=== PATIENT | male | born 1955 | race Caucasian/White ===

== ENCOUNTER → 2018-06-25 | Outpatient (CLI) | payer BC, OTHER ==
[~2018-06-25] MED LIST: DITROPAN XL10 MG PO; FLECAINIDE ACET50 M1 PO; GLYXAMBI 10 MG1 EACH; KLOR-CON 1010 MEQ PO; LASIX 20 MG TAB20 MG; LASIX 20 MG TAB20 MG PO; LIPITOR10 MG PO; LISINOPRIL5 MG PO; LOPRESSOR50 PO; VITAMIN D1000 UNI1 PO; XARELTO20 MG PO
[2018-06-25 08:42] LABS: HEMATOCRIT 46.3 % (42.0-52.0); HEMOGLOBIN 15.9 gm/dL (14.0-18.0); MCH 31.3 pg (26.0-34.0); MCHC 34.3 g/dL (28.0-37.0); MCV 91.1 fL (80.0-100.0); RBC 5.08 mil/uL (4.50-6.00); RDW 13.2 % (10.5-14.5); WBC 7.1 thou/uL (4.0-11.0)
[2018-06-25 08:56] LABS: POTASSIUM 4.5 mmol/L (3.5-5.1); TOTAL BILIRUBIN 0.5 mg/dL (<0.1-1.0); TOTAL PROTEIN 7.4 g/dL (6.4-8.2)
== END ==
LOC: CAT 08:24
PROVIDERS: Internal Medicine Cardiovascular Disease
DX: I48.91 Unspecified atrial fibrillation (principal); I25.10 Atherosclerotic heart disease of native coronary artery without angina pectoris; K80.20 Calculus of gallbladder without cholecystitis without obstruction; M47.814 Spondylosis without myelopathy or radiculopathy, thoracic region

== ENCOUNTER 2018-06-30 06:46 | Observation (INO) | payer BC, OTHER ==
[~2018-06-30] VITALS: Ht 177.8 cm; Wt 88.0 kg
--- NOTE | ~2018-06-30 | P ---
[facility] [place] [address] PROCEDURE REPORT Name: ALEC COOK Room #: 202-P [facility] M.RPetrona#: [id number] Admission: 06/30/18 Attend Phys: Thierno Ha MD Discharge: Date of : 51 Report #: [id number] THIS REPORT FOR: //name// CC: Luis Peterson PREOPERATIVE DIAGNOSIS: Atrial fibrillation. POSTOPERATIVE DIAGNOSIS: Atrial fibrillation. INDICATIONS: The patient is a 62-year-old with history of atrial fibrillation, here for an ablation. PROCEDURES PERFORMED: 1. AFib ablation, CPT code 06731. 2. 3D mapping EP, CPT code 60189. 3. Intracardiac echo, CPT code 28357. 4. Focal ablation, CPT code 75355. ANESTHESIA: The patient underwent general anesthesia with no anesthesia related complications. Of note, he did have somewhat low blood pressures and required some vasopressors to maintain his blood pressure. DESCRIPTION OF PROCEDURE: The patient underwent informed consent. We discussed the details of the procedure including the risks which include, but not limited to, bleeding, vascular damage, stroke, LA. He understood these risks and is willing to proceed. The patient was brought to EP laboratory in a fasting and sedated state, prepped and draped in sterile fashion. I then obtained access to the right femoral vein x 3, placing an 8-[place]ank[place], 9-[place]ankan and 7-[place]ankan short sheath using the modified Seldinger technique. Under fluoroscopy, I placed a decapolar catheter easily in the coronary sinus and ice catheter into the right atrium. At baseline, the patient was in AFib with a ventricular rate of 420 milliseconds, QRS duration 95 milliseconds, QT interval 330 milliseconds. Using intracardiac ultrasound, I created a detailed 3D geometry of the left atrium. I did have some difficulties visualizing the left atrial appendage in the left superior pulmonary vein throughout the case, but could visualize the left inferior and the right-sided veins. Next, the patient was systemically heparinized and a transseptal was performed along the mid anterior septum. His transseptal was straightforward and I advanced the SL1 sheath into the left atrium. I then placed a Lasso catheter and created a detailed 3D geometry of the left atrium as well as a voltage map, which showed activation of all 4 pulmonary veins. I then exchanged the SL1 sheath for the cryo sheath and placed the cryoablation balloon into the left atrium. I started by isolating the left superior pulmonary vein. The first freeze was of 180 seconds duration and I came off early due to low [address] [address] PROCEDURE REPORT Name: ALEC COOK Room #: 202-P [facility] M.R.#: [id number] Admission: 06/30/18 Attend Phys: Thierno Ha MD Discharge: Date of : 51 Report #: [id number] attempts at around -30 degrees. After the balloon deflated, the patient had a vagal response with systolic blood pressure dropping into the 60s. I then performed a second freeze in this vein, which was a 4 minutes' duration with isolation of the vein within 140 seconds. However, once the balloon came down, there was evidence of return of conduction in this vein and again he had another vagal response with a blood pressure down to the 60s. I performed a third freeze of a 4 minutes' duration where the vein again isolated after 190 seconds and again when the balloon came down, the blood pressure dropped to 60. A fourth freeze was completed of 4 minutes' duration and again the vein isolated at 150 seconds, but then reconnected and similar to previously, the blood pressure dropped again. I did verify that there was no pericardial effusion and this was clearly a vagal response. I therefore turned my attention to the left inferior pulmonary vein, hoping that maybe isolating this vein would help with the left superior pulmonary vein as well. I performed 3 freezes in this vein. The first freeze was of 4 minutes' duration. It did not result in isolation. The second freeze was of 4 minutes' duration and the vein isolated within 53 seconds. I performed an additional 4-minute freeze and placed the balloon at a more superior and coronal location to hopefully overlap with the left superior pulmonary vein. The left inferior pulmonary vein was now clearly isolated and when I placed my Achieve into the left superior pulmonary vein, this had also been isolated. I therefore turned my attention to the right-sided veins. I placed the decapolar catheter up into the SVC and used this for phrenic nerve pacing. The right superior pulmonary vein isolated after a single 4-minute freeze within 45 seconds. Therefore, I performed a single freeze in this vein. I then turned my attention to the right inferior pulmonary vein. I performed a 4-minute freeze and the vein was not isolated. I performed a second 4-minute freeze and the vein still was not isolated despite good attempts. I therefore repositioned my Achieve into a lower branch of the right inferior pulmonary vein. This allowed me to better obtain occlusion of the inferior aspect of this vessel. This resulted in isolation of the vein after a 4-minute freeze. I then performed ablation along the posterior roof aspect of the left atrium, performing 4 freezes along the posterior roof. Next, a detailed voltage map was created which showed wide circumferential ablation of the left and right-sided veins and incomplete isolation of the posterior roof region of the left atrium. At this point, a cardioversion was performed with adventist of sinus rhythm. A post-ablation EP study was performed and AV block was noted at 330 milliseconds, atrial ERP was noted 270 milliseconds at [address] cycle length. The patient remained in sinus rhythm with sinus cycle length of 1070 milliseconds, [place] interval 180 milliseconds, QRS duration 80 milliseconds, QT interval 430 milliseconds. As such, all catheters and sheaths were pulled, hemostasis was obtained and the patient awoke neurologically and hemodynamically intact. [facility] [address] [place] [address] PROCEDURE REPORT Name: ALEC COOK Room #: 202-P [facility] MePtronaRPetrona#: [id number] Admission: 06/30/18 Attend Phys: Thierno Ha MD Discharge: Date of : 51 Report #: [id number] CONCLUSIONS: Successful AFib ablation with isolation with wide circumferential ablation of the pulmonary veins. By: [id number] Thierno Ha MD /nt
[~2018-06-30 06:46] MED LIST changes: -LASIX 20 MG TAB20 MG PO
[2018-06-30 07:17] LABS: BASOPHILS 0.6 % (0.0-2.0); EOSINOPHILS 2.5 % (0.0-3.0); HEMATOCRIT 44.6 % (42.0-52.0); HEMOGLOBIN 15.5 gm/dL (14.0-18.0); LYMPHOCYTES 20.8 % (24.0-44.0); MCH 31.6 pg (26.0-34.0); MCHC 34.8 g/dL (28.0-37.0); MCV 90.6 fL (80.0-100.0); MONOCYTES 7.5 % (1.0-8.0); PLATELET COUNT 205 thou/uL (150-400); POLYS 68.6 % (36.0-66.0); RBC 4.92 mil/uL (4.50-6.00); RDW 12.9 % (10.5-14.5); WBC 7.3 thou/uL (4.0-11.0)
[2018-06-30 07:22] LABS: CALCIUM 9.2 mg/dL (8.5-10.1); CREATININE 0.9 mg/dL (0.7-1.3); POTASSIUM 4.2 mmol/L (3.5-5.1)
[2018-06-30 07:24] VITALS: BP 142/88
[2018-06-30 07:27] LABS: TOTAL BILIRUBIN 0.9 mg/dL (<0.1-1.0); TOTAL PROTEIN 7.6 g/dL (6.4-8.2)
[2018-06-30] MEDS ORDERED: LASIX 20 MG TAB20 MG PO (07:35)
[2018-06-30] MEDS ORDERED: KLOR-CON 1010 MEQ PO (07:35)
[2018-06-30 07:37] LABS: APTT 27.5 Seconds (24.5-32.8); PROTIME 10.9 Seconds (9.3-11.4)
[2018-06-30 13:40] VITALS: BP 114/73
[2018-06-30 17:55] VITALS: BP 94/44
[2018-06-30 19:18] VITALS: BP 101/68
--- NOTE | 2018-06-30 20:37 | NUR ---
ASSUMED CARE OF PT AT 1340. PT STILL SLEEPY FROM PROCEDURE. ANSWERS ORIENTATION QUESTIONS SLOWLY AND FOLLOWS COMMANDS. PT A&OX4 AND ALERT AT APPROX 1415. PT HAD NO BLEEDING OR HEMATOMA TO RIGHT GROIN, VENOUS ADRIAN CLOSURE. AND DAUGHTER AT THE BEDSIDE. PT ON BEDREST UNTIL 1810. CRANE TO BE REMOVED AFTER BEDREST.
[2018-07-01 00:05] VITALS: BP 92/67
[2018-07-01 04:02] VITALS: BP 110/74
[2018-07-01 07:10] VITALS: BP 107/74
--- NOTE | 2018-07-01 07:41 | NUR ---
pt up in room adlib thru the noc, tylenol given for c/o jurado, vss, ablations site cdi, report given to next shift to con't with ppoc.
--- NOTE | 2018-07-01 09:54 | NUR ---
ASSUMED PATIENT CARE THIS AM. PATIENT LYING IN BED, A&O. ROOM AIR. UP AD BHARGAVI. RIGHT GROIN SITE, D/I. RIGHT RADIAL SITE, C/D/I. NO COMPLAINTS OF PAIN/ N/T. AT BEDSIDE. TOLERATING DIET. AWAITING DOCTORS ORDERS. PLAN FOR POSSIBLE DISCHARGE HOME TODAY.
[2018-07-01] MEDS ORDERED: LOPRESSOR50 PO (10:28)
[2018-07-01 11:00] VITALS: BP 107/74
[2018-07-01 11:10] VITALS: BP 120/77
== END 2018-07-01 13:20 | disposition home or self-care (01) ==
LOC: CATH 06:46 → 2N 13:34 → ENTRNSPT 07-01 13:04 → EDTRNSPTSTS 07-01 13:07 → 2N 07-01 13:20
PROVIDERS: ADMIT Internal Medicine Cardiovascular Disease
DX: I48.0 Paroxysmal atrial fibrillation (principal); E11.9 Type 2 diabetes mellitus without complications; I10 Essential (primary) hypertension; I35.1 Nonrheumatic aortic (valve) insufficiency; Z79.899 Other long term (current) drug therapy
CPT/HCPCS: 62110; 62900; 65020; 65040; 70005

== ENCOUNTER → 2020-08-15 | Outpatient (CLI) | payer OTHER ==
[~2020-08-15] MED LIST changes: +LASIX 20 MG TAB20 MG PO; +METFORMIN HCL500 M3 PO
== END ==
LOC: SJCVC 15:34
PROVIDERS: ATTEND Internal Medicine Cardiovascular Disease
DX: R94.31 Abnormal electrocardiogram [ECG] [EKG] (principal); I48.0 Paroxysmal atrial fibrillation; E11.9 Type 2 diabetes mellitus without complications; R00.1 Bradycardia, unspecified; E78.5 Hyperlipidemia, unspecified; G47.33 Obstructive sleep apnea (adult) (pediatric); I50.30 Unspecified diastolic (congestive) heart failure; I11.0 Hypertensive heart disease with heart failure; Z79.899 Other long term (current) drug therapy; Z79.84 Long term (current) use of oral hypoglycemic drugs; Z72.89 Other problems related to lifestyle; Z88.0 Allergy status to penicillin

== ENCOUNTER → 2020-08-23 | Outpatient (CLI) | payer OTHER | LOC: LAB 07:40 | PROVIDERS: ATTEND Internal Medicine Cardiovascular Disease | DX: Z01.812 Encounter for preprocedural laboratory examination (principal); Z20.822 Contact with and (suspected) exposure to COVID-19 ==

== ENCOUNTER → 2020-08-24 | Outpatient (CLI) | payer OTHER ==
[~2020-08-24] VITALS: Ht 177.8 cm; Wt 80.7 kg
[2020-08-24 07:09] VITALS: BP 118/77
--- NOTE | 2020-08-24 09:14 | TEE ---
[facility] [place] [address] TRANSESOPHAGEAL ECHOCARDIOGRAM Name: JOEYALECBISHOP BERNABE Room #: REG WEI Del Cid.#: [id number] Admission: 08/24/20 Attend Phys: Samuel Velazquez MD, Discharge: Date of : 51 Report #: [id number] THIS REPORT FOR: cc: Luis Wang MD, Amir R. MD Lundgren, Craig H. MD [facility] ~ APPROVED REPORT Study performed: 08/24/2020 07:44:08 EXAM: Transesophageal Echocardiogram with Doppler and cardioversion Patient Location: Out-Patient Room #: 9 Status: routine BSA: 1.99 HR: 126 bpm BP: 105/74 mmHg Rhythm: Atrial Fibrillation Other Information Study Quality: Good Indications Atrial Fibrillation R^O thrombus Echo Enhancing Agent Indication: Rule out Shunt Agent(s) / Amount(s) Used: Agitated Saline 7 cc Procedure After obtaining informed consent, patient underwent transesophageal echo in the [employer]. Type of Sedation : Conscious Sedation Sedation was administered by Nurse. Sedation start time: 0750 Case end Time: 804 Sedation was achieved intravenously with: Versed (5 mg) Fentanyl (50 mcg) Transesophageal probe was inserted and advanced into esophagus without difficulty by Samuel Velazquez MD. Echo enhancement indication: R/O Septal defect. Echo enhancement agent administered: Agitated Saline The LUCY was performed without complications. [facility] [address] [address] TRANSESOPHAGEAL ECHOCARDIOGRAM Name: COOKALEC SAMUEL Room #: REG CL [facility]#: [id number] Admission: 08/24/20 Attend Phys: Samuel Velazquez, Discharge: Date of : 51 Report #: [id number] Synchronized Cardioversion acheived with 120 Joules after 1 attempt(s). Rhythm following Synchronized Cardioversion: Normal Sinus Rhythm Throughout the procedure, the blood pressure, pulse oximetry, cardiac rhythm, and rate were monitored. The patient tolerated the procedure without adverse effects. Recovery from conscious sedation was uneventful and vital signs were stable. Left Ventricle The left ventricle is normal size. There is normal LV segmental wall motion. There is normal left ventricular wall thickness. Left ventricular systolic function is mildly decreased. LVEF 45-50%. Study performed with atrial fibrillation and a rapid ventricular response Right Ventricle The right ventricle is normal size. The right ventricular systolic function is normal. Atria Left atrium is at the upper limits of normal. No thrombus is visualized in the left atrium or appendage. No shunting by contrast bubble injection The right atrium size is normal. Aortic Valve The aortic valve is trileaflet, mildly calcified Mild, central aortic regurgitation. Mild aortic stenosis. Mitral Valve The mitral valve is normal in structure. Mild mitral regurgitation. No evidence of mitral valve stenosis. Tricuspid Valve The tricuspid valve is normal in structure. There is no tricuspid valve regurgitation noted. Pulmonic Valve The pulmonary valve is normal in structure. There is no pulmonic valvular regurgitation. Great Vessels The aortic root is normal in size. Minimal plaquing descending thoracic aorta IVC is normal in size and collapses >50% with inspiration. [facility] [address] [place] [address] TRANSESOPHAGEAL ECHOCARDIOGRAM Name: ALEC COOK Room #: REG CL Trice#: [id number] Admission: 08/24/20 Attend Phys: Samuel Velazquez, Discharge: Date of : 51 Report #: [id number] Pericardium There is no pericardial effusion. <Conclusion> Left ventricular systolic function is mildly decreased. LVEF 45-50%. Study performed in atrial fibrillation with rapid ventricular response Left atrium is at the upper limits of normal. No thrombus in the left atrium or appendage. No shunting by contrast bubble injection The aortic valve is trileaflet, mildly calcified. Mild, central aortic regurgitation, no significant stenosis (see tranthoracic Doppler). The mitral valve is normal in structure. Mild mitral regurgitation. Minimal plaquing descending thoracic aorta There is no pericardial effusion. Successful cardioversion of atrial fibrillation to sinus rhythm following a single 120 J biphasic synchronous shock. <ELECTRONICALLY SIGNED> By: Samuel Vealzquez MD, [facility] 08/24/20912 2 2 Samuel Velazquez MD, FACC /INF
== END | disposition home or self-care (01) ==
LOC: CATH 06:33
PROVIDERS: ATTEND Internal Medicine
DX: I48.91 Unspecified atrial fibrillation (principal); I08.0 Rheumatic disorders of both mitral and aortic valves; I70.0 Atherosclerosis of aorta; I10 Essential (primary) hypertension; E11.9 Type 2 diabetes mellitus without complications; E78.5 Hyperlipidemia, unspecified; Z98.890 Other specified postprocedural states; Z79.899 Other long term (current) drug therapy; Z79.01 Long term (current) use of anticoagulants; Z88.0 Allergy status to penicillin

== ENCOUNTER → 2020-09-27 | Outpatient (CLI) | payer OTHER | LOC: SJCVC 15:09 | PROVIDERS: ATTEND Internal Medicine Cardiovascular Disease | DX: R00.1 Bradycardia, unspecified (principal); I48.0 Paroxysmal atrial fibrillation; E11.9 Type 2 diabetes mellitus without complications; E78.5 Hyperlipidemia, unspecified; G47.33 Obstructive sleep apnea (adult) (pediatric); I11.0 Hypertensive heart disease with heart failure; I50.30 Unspecified diastolic (congestive) heart failure; Z98.890 Other specified postprocedural states; Z88.0 Allergy status to penicillin; Z79.84 Long term (current) use of oral hypoglycemic drugs; Z79.899 Other long term (current) drug therapy; Z82.49 Family history of ischemic heart disease and other diseases of the circulatory system ==

== ENCOUNTER → 2021-04-11 | Outpatient (CLI) | payer OTHER | LOC: SJCVC 15:19 | PROVIDERS: ATTEND Internal Medicine Cardiovascular Disease | DX: R00.1 Bradycardia, unspecified (principal); I48.0 Paroxysmal atrial fibrillation; I10 Essential (primary) hypertension; E11.9 Type 2 diabetes mellitus without complications; E78.5 Hyperlipidemia, unspecified; G47.33 Obstructive sleep apnea (adult) (pediatric); Z88.0 Allergy status to penicillin; Z79.84 Long term (current) use of oral hypoglycemic drugs; Z79.899 Other long term (current) drug therapy; Z72.89 Other problems related to lifestyle; Z82.49 Family history of ischemic heart disease and other diseases of the circulatory system ==

== ENCOUNTER → 2021-05-07 | Outpatient (CLI) | payer OTHER ==
--- NOTE | ~2021-05-07 | P ---
[facility] [address] [place] [address] PROCEDURE REPORT Name: JOEYALEC Lane Room #: REG WEI Carnes#: [id number] Admission: 05/07/21 Attend Phys: Thierno Ha MD Discharge: Date of : 51 Report #: [id number] THIS REPORT FOR: cc: Luis Wang MD, Amir R. MD Couchonnal, Luis F. MD ~ DATE OF SERVICE: 05/07/2021 PROCEDURE: Implantable loop recorder removal and replacement PREOPERATIVE DIAGNOSIS: Implantable loop recorder is at the end of service. POSTOPERATIVE DIAGNOSIS: Implantable loop recorder is at the end of service. DESCRIPTION OF PROCEDURE: The patient was brought to the procedure suite in a fasting and sedated state, underwent informed consent, was prepped in a standard fashion. I injected lidocaine at the prior incision site. The old device was removed. The new one was implanted, tested, and found to be functioning normally. Single suture was performed. A dressing was placed. There were no procedure related complications. The implanted device was [employer], [id number], serial number [id number]. CONCLUSION: Successful removal and reimplantation of an implantable loop recorder. By: [id number] Thierno Ha MD /nt
[2021-05-07 09:09] VITALS: BP 135/75
== END | disposition home or self-care (01) ==
LOC: CATH 06:50
PROVIDERS: ATTEND Internal Medicine Cardiovascular Disease
DX: Z45.09 Encounter for adjustment and management of other cardiac device (principal); I48.91 Unspecified atrial fibrillation; Z98.890 Other specified postprocedural states; Z20.822 Contact with and (suspected) exposure to COVID-19; Z79.899 Other long term (current) drug therapy; Z88.0 Allergy status to penicillin